=== PATIENT | male | born 1955 | race African-American/Black ===

== ENCOUNTER 2016-05-18 11:56 | Inpatient (IN) | payer OTHER ==
[2016-05-18 12:53] VITALS: BMI 29.8
--- NOTE | 2016-05-18 14:01 | HP ---
Admission ROS [facility] Chief Complaint: I NEED HELP TO STOP USING HEROIN,COCAINE,CANNABIS Allergies/Adverse Reactions: Allergies Allergy/AdvReac Type Severity Reaction Status Date / Time No Known Allergies Allergy Verified 05/18/16 13:53 History of Present Illness: THIS 60 YEARS OLD MALE WITH HEROIN ,COCAINE AND CANNABIS DEPENDENCE,NEED HELP TO STOP TYPE 2 DM NICOTINE DEPENDENCE LAST DETOX 03/12/11 TO 03/17/11 LONGEST SOBRIETY 5 YEARS Exam Limitations: No Limitations - Ebola screening Have you traveled outside of the country in the last 21 days: No Have you had contact with anyone from an Ebola affected area: No Have you been sick,other than usual withdrawal symptoms: No Do you have a fever: No - Review of Systems Constitutional: No Symptoms Reported EENT: reports: No Symptoms Reported Respiratory: reports: No Symptoms reported Cardiac: reports: No Symptoms Reported GI: reports: No Symptoms Reported : reports: No Symptoms Reported Musculoskeletal: reports: No Symptoms Reported Integumentary: reports: No Symptoms Reported Neuro: reports: No Symptoms reported Endocrine: reports: No Symptoms Reported Hematology: reports: No Symptoms Reported Psychiatric: reports: No Sypmtoms Reported Patient History - Patient Medical History Hx Anemia: No Hx Asthma: No Hx Chronic Obstructive Pulmonary Disease (COPD): No Hx Cancer: No Hx Cardiac Disorders: No Hx Congestive Heart Failure: No Hx Hypertension: No Hx Hypercholesterolemia: No Hx Pacemaker: No HX Cerebrovascular Accident: No Hx Seizures: No Hx Dementia: No Hx Diabetes: Yes (NON COMPLIABCE) Hx Gastrointestinal Disorders: No Hx Liver Disease: No Hx Genitourinary Disorders: No Hx Sexually Transmitted Disorders: No Hx Renal Disease (ESRD): No Hx Thyroid Disease: No Hx Human Immunodeficiency Virus (HIV): No (LAST 2012 NEGATIVE) Hx Hepatitis C: No Hx Depression: No Hx Suicide Attempt: No Hx Bipolar Disorder: No Hx Schizophrenia: No Other Medical History: NO SUIICDAL,NO HOMICIDAL - Patient Surgical History Past Surgical History: No - PPD History Previous Implant?: Yes Documented Results: Positive w/o proof Implanted On Prior [facility] Admission?: No PPD to be Administered?: No - Smoking Cessation Smoking history: Current every day smoker Have you smoked in the past 12 months: Yes Aproximately how many cigarettes per day: 4 Hx Chewing Tobacco Use: No Initiated information on smoking cessation: Yes 'Breaking Loose' booklet given: 05/18/16 - Substance & Tx. History Hx Alcohol Use: No Hx Substance Use: Yes Substance Use Type: Cocaine, Heroin, Marijuana Hx Substance Use Treatment: Yes (LAST [facility] 03/12/11 TO 03/17/14) - Substances Abused Heroin Route: Inhalation Frequency: 3-6 times per week Amount used: 1/2 bag Age of first use: 11 Date of Last Use: 05/16/16 Cocaine Route: Smoking Frequency: 3-6 times per week Amount used: $10 Age of first use: 20 Date of Last Use: 05/16/16 Marijuana/Hashish Route: Smoking Frequency: 3-6 times per week Amount used: 3-5 joints Age of first use: 13 Date of Last Use: 05/16/16 Family Disease History - Family Disease History Family Disease History: Other: Father (ALCOHOL ), Mother () Admission Physical Exam [facility] - Vital Signs Vital Signs: Vital Signs - 24 hr 05/18/16 12:51 Temperature 97.4 F L Pulse Rate 66 Respiratory 20 Rate Blood Pressure 121/77 - Physical General Appearance: Yes: Within Normal Limits HEENTM: Yes: Within Normal Limits Respiratory: Yes: Within Normal Limits Neck: Yes: Within Normal Limits Breast: Yes: Within Normal Limits Cardiology: Yes: Within Normal Limits Abdominal: Yes: Within Normal Limits Genitourinary: Yes: Within Normal Limits Back: Yes: Within Normal Limits Musculoskeletal: Yes: Within Normal Limits Extremities: Yes: Within Normal Limits Neurological: Yes: centrifugal machine tender II-XII NML intact, Fully Oriented, Alert, Motor Strength 5/5 Integumentary: Yes: Within Normal Limits Lymphatic: Yes: Within Normal Limits - Diagnostic (1) Heroin dependence Current Visit: Yes Status: Acute (2) Cocaine dependence Current Visit: Yes Status: Acute (3) Cannabis dependence Current Visit: Yes Status: Acute (4) DM2 (diabetes mellitus, type 2) Current Visit: Yes Status: Acute (5) Positive PPD, treated Current Visit: Yes Status: Acute Cleared for Admission [facility] - Detox or Rehab [facility] Level of Care: Medically Managed Claeared for Rehab Admission: Yes [facility] Breath Alcohol Content Breath Alcohol Content: 0 Urine Drug Screen - Results Drug Screen Negative: No Urine Drug Screen Results: THC-Marijuana, FAZAL-Cocaine
[2016-05-18] MEDS ORDERED: hydrOXYzine PAMOATE 50 MG CAPSULE (FP) PO PRN (14:13)
[2016-05-18] MEDS ORDERED: MAGNESIUM HYDROX 2400MG/30ML ORAL SUSPENSION 30 ML CUP PO PRN (14:13)
[2016-05-18] MEDS ORDERED: MAGNESIUM CITRATE 300 ML BOTTLE PO PRN (14:13)
[2016-05-18] MEDS ORDERED: ACETAMINOPHEN 325 MG TABLET (FP) PO PRN (14:13)
[2016-05-18] MEDS ORDERED: MENTHOL/PHENOL 1 EACH UD MM PRN (14:13)
[2016-05-18] MEDS ORDERED: guaiFENesin/D-METHORPHAN HB 10 ML UNIT-DOSE CUPS PO PRN (14:13)
[2016-05-18] MEDS ORDERED: IBUPROFEN 400 MG TABLET (FP) PO PRN (14:13)
[2016-05-18] MEDS ORDERED: LOPERAMIDE HCL 2 MG CAPSULE PO PRN (14:13)
[2016-05-18] MEDS ORDERED: MAG HYDROX/AL HYDROX/SIMETH 30 ML UNIT-DOSE CUP PO PRN (14:13)
[2016-05-18] MEDS ORDERED: P-EPHED 60MG/TRIPROLIDI 2.5MG TABLET PO PRN (14:13)
[2016-05-18] MEDS ORDERED: INSULIN (NOVOLOG) ASPART 100 UNITS/ML 10ML VIAL ONE ×2 (17:08→22:25)
[2016-05-18] MEDS: metFORMIN HCL 500 MG TABLET (FP) PO SCH (17:09)
[2016-05-18] MEDS: INSULIN SLIDING SCALE (NOVOLOG) 1 VIAL SQ SCH ×2 (17:09→21:55)
[2016-05-18 19:22] LABS: MCH 28.4 pg (25.7-33.7); MCHC 31.4 g/dl (32.0-35.9); MEAN CELL VOLUME 90.5 fl (80-96); WHITE BLOOD COUNT 7.7 K/mm3 (4.0-10.0)
[2016-05-18 19:23] LABS: PH,URINE 5.5 (5.0-8.0); URINE APPEARANCE CLEAR; URINE BILIRUBIN NEGATIVE (NEGATIVE); URINE BLOOD NEGATIVE (NEGATIVE); URINE COLOR LT. YELLOW; URINE GLUCOSE (UA) 3+ (NEGATIVE); URINE KETONE NEGATIVE (NEGATIVE); URINE LEUK ESTERASE NEGATIVE (NEGATIVE); URINE NITRITE NEGATIVE (NEGATIVE); URINE PROTEIN NEGATIVE (NEGATIVE); URINE UROBILINOGEN 0.2 E.U/dl E.U./dl (0.2-1.0)
[2016-05-18 19:34] LABS: ALBUMIN 3.9 g/dl (3.4-5.0); ANION GAP 8 (8-16); BILIRUBIN,TOTAL 0.6 mg/dL (0.2-1.0); CALCIUM 9.2 mg/dL (8.5-10.1); CO2 29 mmol/L (21-32); CREATININE 0.9 mg/dL (0.7-1.3); SGOT/AST 27 U/L (15-37); SGPT/ALT 35 U/L (12-78); TOT PROT 7.8 g/dl (6.4-8.2)
[2016-05-18 19:35] LABS: ALK PHOS 147 U/L (45-117)
[2016-05-18 19:52] LABS: GLUCOSE,RANDOM 425 mg/dL (74-106)
[2016-05-18 21:43] LABS: MEAN PLT VOLUME 12.1 fl (7.5-11.1); PLATELET COMMENT2 NO CLUMPING NOTED; PLATELET COUNT 227 K/MM3 (134-434); PLATELET ESTIMATE ADEQUATE (NORMAL)
[2016-05-18] MEDS: THIAMINE HCL 100 MG TABLET (FP) PO SCH (21:56)
[2016-05-18] MEDS: diphenhydrAMINE HCL 50 MG CAPSULE PO PRN (21:56)
[2016-05-19] MEDS: metFORMIN HCL 500 MG TABLET (FP) PO SCH ×2 (06:16→16:39)
[2016-05-19] MEDS: INSULIN SLIDING SCALE (NOVOLOG) 1 VIAL SQ SCH ×4 (06:20→22:02)
[2016-05-19] MEDS ORDERED: INSULIN (NOVOLOG) ASPART 100 UNITS/ML 10ML VIAL ONE ×4 (06:20→22:02)
[2016-05-19] MEDS: PRENATAL VITAMINS W/ FOLIC ACID TABLET (FP) PO SCH (10:09)
--- NOTE | 2016-05-19 10:21 | EKG ---
Test Reason : Blood Pressure : / mmHG Vent. Rate : 063 BPM Atrial Rate : 063 BPM P-R Int : 170 ms QRS Dur : 092 ms QT Int : 418 ms P-R-T Axes : 079 068 070 degrees QTc Int : 427 ms NORMAL SINUS RHYTHM NONSPECIFIC ST AND T WAVE ABNORMALITY ABNORMAL ECG NO PREVIOUS ECGS AVAILABLE Confirmed by JOANNE VIGIL, JUVENAL ([id number]) on 05/19/2016 10:20:44 AM Referred By: Jose Lara Confirmed By:JUVENAL RUBIO MD
[2016-05-19 10:24] LABS: HIV 1 & 2 AB NEGATIVE; HIV 1 AGp24 NEGATIVE
--- NOTE | 2016-05-19 11:54 | HP ---
Psychiatrist Admission - Data Date of interview: 05/19/16 Admission source: [facility] Identifying data: This is the first 5N inpatient rehabilitation admission for this 60 year old single black male residing alone and supported by SSI/SSD. Medical History: DM, smokes cigarettes Psychiatric History: Patient denies history of psychiatric treatment. Physical/Sexual Abuse/Trauma History: Patient denies history of sexual, physical and verbal abuse. Vital Signs: Vital Signs - 24 hr 05/18/16 05/19/16 05/19/16 12:51 00:30 03:30 Temperature 97.4 F L Pulse Rate 66 Respiratory 20 18 18 Rate Blood Pressure 121/77 05/19/16 05/19/16 06:50 10:00 Temperature 97.9 F Pulse Rate 70 69 Respiratory 20 Rate Blood Pressure 112/70 137/77 Allergies/Adverse Reactions: Allergies Allergy/AdvReac Type Severity Reaction Status Date / Time No Known Allergies Allergy Verified 05/18/16 13:53 Date of last physical exam: 05/18/16 Concur with the findings of this exam: Yes - Substance Abuse/Tx History Hx Alcohol Use: No Substance Use Type: Cocaine ($100-200 daily use), Heroin (2-3 bags a week), Marijuana (daily use) Hx Substance Use Treatment: No (first tx) - Admission Criteria Previous failed treatment: No Poor recovery environment: Yes Comorbidities: No Lacks judgement: Yes Mental Status Exam - Mental Status Exam Alert and Oriented to: Time, Place, Person Cognitive Function: Good Patient Appearance: Well Groomed Mood: Hopeful Affect: Appropriate, Mood Congruent Patient Behavior: Appropriate, Cooperative Speech Pattern: Clear, Appropriate Voice Loudness: Normal Thought Process: Intact, Goal Oriented Thought Disorder: Not Present Hallucinations: Denies Suicidal Ideation: Denies Homicidal Ideation: Denies Insight/Judgement: Fair Sleep: Fair Appetite: Fair Muscle strength/Tone: Normal Gait/Station: Normal Psychiatric Findings - Problem List ([place] 1, 2,3) (1) Cannabis dependence Current Visit: Yes Status: Acute (2) Cocaine dependence Current Visit: Yes Status: Acute (3) DM2 (diabetes mellitus, type 2) Current Visit: Yes Status: Acute (4) Heroin dependence Current Visit: Yes Status: Acute - Initial Treatment Plan Initial Treatment Plan: will monitor progress as needed.
[2016-05-19] MEDS: diphenhydrAMINE HCL 50 MG CAPSULE PO PRN (22:03)
[2016-05-19] MEDS: THIAMINE HCL 100 MG TABLET (FP) PO SCH (22:03)
[2016-05-20] MEDS: metFORMIN HCL 500 MG TABLET (FP) PO SCH ×2 (06:27→16:40)
[2016-05-20] MEDS: INSULIN SLIDING SCALE (NOVOLOG) 1 VIAL SQ SCH ×4 (06:27→21:23)
[2016-05-20] MEDS: PRENATAL VITAMINS W/ FOLIC ACID TABLET (FP) PO SCH (10:04)
[2016-05-20] MEDS ORDERED: INSULIN (NOVOLOG) ASPART 100 UNITS/ML 10ML VIAL ONE ×3 (12:15→21:58)
[2016-05-20] MEDS: THIAMINE HCL 100 MG TABLET (FP) PO SCH (21:23)
[2016-05-20] MEDS: diphenhydrAMINE HCL 50 MG CAPSULE PO PRN (21:23)
[2016-05-21] MEDS: metFORMIN HCL 500 MG TABLET (FP) PO SCH ×2 (06:30→16:39)
[2016-05-21] MEDS: INSULIN SLIDING SCALE (NOVOLOG) 1 VIAL SQ SCH ×4 (06:32→21:20)
[2016-05-21] MEDS ORDERED: INSULIN (NOVOLOG) ASPART 100 UNITS/ML 10ML VIAL ONE ×3 (06:34→16:41)
[2016-05-21] MEDS: PRENATAL VITAMINS W/ FOLIC ACID TABLET (FP) PO SCH (09:44)
[2016-05-21] MEDS: THIAMINE HCL 100 MG TABLET (FP) PO SCH (21:17)
[2016-05-21] MEDS: diphenhydrAMINE HCL 50 MG CAPSULE PO PRN (21:21)
[2016-05-22] MEDS: metFORMIN HCL 500 MG TABLET (FP) PO SCH ×2 (06:43→16:40)
[2016-05-22] MEDS: INSULIN SLIDING SCALE (NOVOLOG) 1 VIAL SQ SCH ×4 (06:45→21:42)
[2016-05-22] MEDS ORDERED: INSULIN (NOVOLOG) ASPART 100 UNITS/ML 10ML VIAL ONE ×2 (06:45→12:01)
[2016-05-22] MEDS: PRENATAL VITAMINS W/ FOLIC ACID TABLET (FP) PO SCH (09:41)
[2016-05-22] MEDS: THIAMINE HCL 100 MG TABLET (FP) PO SCH (21:40)
[2016-05-22] MEDS: diphenhydrAMINE HCL 50 MG CAPSULE PO PRN (21:44)
[2016-05-23] MEDS ORDERED: INSULIN (NOVOLOG) ASPART 100 UNITS/ML 10ML VIAL ONE ×2 (06:19→12:07)
[2016-05-23] MEDS: metFORMIN HCL 500 MG TABLET (FP) PO SCH ×2 (06:20→16:38)
[2016-05-23] MEDS: INSULIN SLIDING SCALE (NOVOLOG) 1 VIAL SQ SCH ×4 (06:20→21:36)
[2016-05-23] MEDS: PRENATAL VITAMINS W/ FOLIC ACID TABLET (FP) PO SCH (09:58)
[2016-05-23] MEDS: THIAMINE HCL 100 MG TABLET (FP) PO SCH (21:35)
[2016-05-23] MEDS: diphenhydrAMINE HCL 50 MG CAPSULE PO PRN (21:36)
[2016-05-24] MEDS: INSULIN SLIDING SCALE (NOVOLOG) 1 VIAL SQ SCH ×4 (06:21→21:22)
[2016-05-24] MEDS ORDERED: INSULIN (NOVOLOG) ASPART 100 UNITS/ML 10ML VIAL ONE ×4 (06:21→21:22)
[2016-05-24] MEDS: metFORMIN HCL 500 MG TABLET (FP) PO SCH ×2 (06:22→17:01)
[2016-05-24] MEDS: PRENATAL VITAMINS W/ FOLIC ACID TABLET (FP) PO SCH (09:46)
[2016-05-24] MEDS: THIAMINE HCL 100 MG TABLET (FP) PO SCH (21:23)
[2016-05-25] MEDS ORDERED: INSULIN (NOVOLOG) ASPART 100 UNITS/ML 10ML VIAL ONE ×2 (06:16→12:08)
[2016-05-25] MEDS: INSULIN SLIDING SCALE (NOVOLOG) 1 VIAL SQ SCH ×4 (06:17→21:22)
[2016-05-25] MEDS: metFORMIN HCL 500 MG TABLET (FP) PO SCH ×2 (06:17→16:45)
[2016-05-25] MEDS: PRENATAL VITAMINS W/ FOLIC ACID TABLET (FP) PO SCH (10:16)
[2016-05-25] MEDS: THIAMINE HCL 100 MG TABLET (FP) PO SCH (21:20)
[2016-05-26] MEDS: metFORMIN HCL 500 MG TABLET (FP) PO SCH ×2 (06:35→16:44)
[2016-05-26] MEDS ORDERED: INSULIN (NOVOLOG) ASPART 100 UNITS/ML 10ML VIAL ONE ×4 (06:37→21:41)
[2016-05-26] MEDS: INSULIN SLIDING SCALE (NOVOLOG) 1 VIAL SQ SCH ×4 (06:37→21:41)
[2016-05-26] MEDS: PRENATAL VITAMINS W/ FOLIC ACID TABLET (FP) PO SCH (10:00)
[2016-05-26] MEDS: THIAMINE HCL 100 MG TABLET (FP) PO SCH (21:40)
[2016-05-27] MEDS: metFORMIN HCL 500 MG TABLET (FP) PO SCH ×2 (06:12→16:46)
[2016-05-27] MEDS ORDERED: INSULIN (NOVOLOG) ASPART 100 UNITS/ML 10ML VIAL ONE ×2 (06:15→12:00)
[2016-05-27] MEDS: INSULIN SLIDING SCALE (NOVOLOG) 1 VIAL SQ SCH ×4 (06:16→21:23)
[2016-05-27] MEDS: PRENATAL VITAMINS W/ FOLIC ACID TABLET (FP) PO SCH (10:11)
[2016-05-27] MEDS: THIAMINE HCL 100 MG TABLET (FP) PO SCH (21:22)
[2016-05-27] MEDS: diphenhydrAMINE HCL 50 MG CAPSULE PO PRN (21:25)
[2016-05-28] MEDS ORDERED: INSULIN (NOVOLOG) ASPART 100 UNITS/ML 10ML VIAL ONE ×4 (06:08→21:49)
[2016-05-28] MEDS: INSULIN SLIDING SCALE (NOVOLOG) 1 VIAL SQ SCH ×4 (06:09→21:49)
[2016-05-28] MEDS: metFORMIN HCL 500 MG TABLET (FP) PO SCH ×2 (07:28→17:03)
[2016-05-28] MEDS: PRENATAL VITAMINS W/ FOLIC ACID TABLET (FP) PO SCH (10:05)
--- NOTE | 2016-05-28 14:32 | PN ---
Psychiatric Progress Note Vital Signs: Vital Signs Period Temp Pulse Resp BP Sys/Villalpando Pulse Ox Last 24 Hr 97.8 F 74 18-20 113/75 Date of Session: 05/28/16 Chief Complaint:: "[email or web address]" HPI: Patient is addressing opioid, cocaine, cannabis,nicotine dependence. ROS: DM medically manged. Current Medications: Active Medications Generic Name Dose Route Start Last Admin Trade Name Freq PRN Reason Stop Dose Admin Acetaminophen 650 mg 05/18/16 14:13 Tylenol - PO Q4H PRN PAIN Al Hydroxide/Mg Hydroxide 30 ml 05/18/16 14:13 Mylanta Oral Suspension - PO Q6H PRN DYSPEPSIA Diphenhydramine HCl 50 mg 05/18/16 14:13 05/27/16 21:25 Benadryl - PO 50 mg HSMR1 PRN Administration INSOMNIA Eucalyptus/Menthol/Phenol/Sorbitol 1 each 05/18/16 14:13 Cepastat Lozenge - MM Q4H PRN SORE THROAT Guaifenesin 10 ml 05/18/16 14:13 Robitussin Dm - PO Q6H PRN COUGH Hydroxyzine Pamoate 50 mg 05/18/16 14:13 Vistaril - PO Q4H PRN AGITATION Ibuprofen 400 mg 05/18/16 14:13 Motrin - PO Q6H PRN SEVERE PAIN Insulin Aspart 0 vial 05/18/16 16:30 05/28/16 12:03 Novolog Vial Sliding Scale - SQ 12 units ACHS YAMILET Administration Protocol Loperamide HCl 4 mg 05/18/16 14:13 Imodium - PO Q6H PRN DIARRHEA Magnesium Citrate 300 ml 05/18/16 14:13 Citroma - PO Q48H PRN CONSTIPATION Magnesium Hydroxide 30 ml 05/18/16 14:13 Milk Of Magnesia - PO DAILY PRN CONSTIPATION Metformin HCl 1,000 mg 05/18/16 16:30 05/28/16 07:28 Glucophage - PO 1,000 mg BID@0700,1630 YAMILET Administration Multivit/Folic Acid/Iron 1 tab 05/19/16 10:00 05/28/16 10:05 Vitamins ([facility]) - PO 1 tab DAILY YAMILET Administration Pseudoephedrine/Triprolidine 1 combo 05/18/16 14:13 Actifed - PO TID PRN NASAL CONGESTION Thiamine HCl 100 mg 05/18/16 22:00 05/27/16 21:22 Vitamin B1 - PO 100 mg HS YAMILET Administration Medication(s) Change(s): increase Benadryl 100 mg po hs Current Side Effect: No Lab tests ordered: No Lab tests reviewed: Yes Provider note:: Patient reports has been frustrated by his glucose blood level, reports has been eating a "lot" patient was encouraged to follow the diet, he was referred to see a public address servicer, feeling "ok" just difficulty at nights, psychoeducations refgarding sleeping hygiene, states Benadryl 50 mg po hs not effective and he needs 100 mg po hs, will increase and continue to monitor progress. Total face to face time:: 30 Mental Status Exam - Mental Status Exam Alert and Oriented to: Time, Place, Person Cognitive Function: Good Patient Appearance: Well Groomed Mood: Sad Affect: Appropriate, Mood Congruent Patient Behavior: Appropriate, Cooperative Speech Pattern: Clear, Appropriate Voice Loudness: Normal Thought Process: Goal Oriented Thought Disorder: Not Present Hallucinations: Denies Suicidal Ideation: Denies Homicidal Ideation: Denies Insight/Judgement: Fair Sleep: Poorly, Difficulty falling asleep Appetite: Fair Muscle strength/Tone: Normal Psychiatric Treatment Plan - Problem List (1) Cannabis dependence Current Visit: Yes (2) Cocaine dependence Current Visit: Yes (3) DM2 (diabetes mellitus, type 2) Current Visit: Yes (4) Heroin dependence Current Visit: Yes (5) Insomnia Current Visit: Yes
[2016-05-28] MEDS: THIAMINE HCL 100 MG TABLET (FP) PO SCH (21:50)
[2016-05-28] MEDS: diphenhydrAMINE HCL 50 MG CAPSULE PO PRN (21:52)
[2016-05-29] MEDS: metFORMIN HCL 500 MG TABLET (FP) PO SCH ×2 (06:24→16:46)
[2016-05-29] MEDS: INSULIN SLIDING SCALE (NOVOLOG) 1 VIAL SQ SCH ×4 (06:25→21:14)
[2016-05-29] MEDS ORDERED: INSULIN (NOVOLOG) ASPART 100 UNITS/ML 10ML VIAL ONE ×4 (06:25→21:14)
[2016-05-29] MEDS: PRENATAL VITAMINS W/ FOLIC ACID TABLET (FP) PO SCH (09:42)
[2016-05-29] MEDS: THIAMINE HCL 100 MG TABLET (FP) PO SCH (21:14)
[2016-05-30] MEDS: metFORMIN HCL 500 MG TABLET (FP) PO SCH ×2 (06:21→16:44)
[2016-05-30] MEDS ORDERED: INSULIN (NOVOLOG) ASPART 100 UNITS/ML 10ML VIAL ONE ×4 (08:25→21:53)
[2016-05-30] MEDS: INSULIN SLIDING SCALE (NOVOLOG) 1 VIAL SQ SCH ×4 (08:25→21:53)
[2016-05-30] MEDS: PRENATAL VITAMINS W/ FOLIC ACID TABLET (FP) PO SCH (09:50)
[2016-05-30] MEDS: THIAMINE HCL 100 MG TABLET (FP) PO SCH (21:52)
[2016-05-31] MEDS ORDERED: INSULIN (NOVOLOG) ASPART 100 UNITS/ML 10ML VIAL ONE ×4 (06:18→21:46)
[2016-05-31] MEDS: metFORMIN HCL 500 MG TABLET (FP) PO SCH ×2 (06:19→17:02)
[2016-05-31] MEDS: INSULIN SLIDING SCALE (NOVOLOG) 1 VIAL SQ SCH ×4 (06:19→21:44)
[2016-05-31] MEDS: PRENATAL VITAMINS W/ FOLIC ACID TABLET (FP) PO SCH (10:18)
[2016-05-31] MEDS: THIAMINE HCL 100 MG TABLET (FP) PO SCH (21:41)
[2016-06-01] MEDS ORDERED: INSULIN (NOVOLOG) ASPART 100 UNITS/ML 10ML VIAL ONE ×4 (06:16→21:59)
[2016-06-01] MEDS: metFORMIN HCL 500 MG TABLET (FP) PO SCH ×2 (06:16→17:05)
[2016-06-01] MEDS: INSULIN SLIDING SCALE (NOVOLOG) 1 VIAL SQ SCH ×4 (06:20→21:59)
[2016-06-01] MEDS: PRENATAL VITAMINS W/ FOLIC ACID TABLET (FP) PO SCH (10:13)
[2016-06-01] MEDS: THIAMINE HCL 100 MG TABLET (FP) PO SCH (22:00)
[2016-06-02] MEDS: metFORMIN HCL 500 MG TABLET (FP) PO SCH ×2 (06:45→17:05)
[2016-06-02] MEDS: INSULIN SLIDING SCALE (NOVOLOG) 1 VIAL SQ SCH ×4 (06:45→21:51)
[2016-06-02] MEDS: PRENATAL VITAMINS W/ FOLIC ACID TABLET (FP) PO SCH (10:08)
[2016-06-02] MEDS ORDERED: INSULIN (NOVOLOG) ASPART 100 UNITS/ML 10ML VIAL ONE ×3 (11:55→21:51)
[2016-06-02] MEDS: THIAMINE HCL 100 MG TABLET (FP) PO SCH (21:50)
[2016-06-02] MEDS: diphenhydrAMINE HCL 50 MG CAPSULE PO PRN (21:52)
[2016-06-03] MEDS ORDERED: INSULIN (NOVOLOG) ASPART 100 UNITS/ML 10ML VIAL ONE (06:22)
[2016-06-03] MEDS: INSULIN SLIDING SCALE (NOVOLOG) 1 VIAL SQ SCH (06:22)
[2016-06-03] MEDS: metFORMIN HCL 500 MG TABLET (FP) PO SCH (06:23)
[2016-06-03 06:59] VITALS: BP 121/66; PULSE 77; TEMP 98.2
[2016-06-03] MEDS: PRENATAL VITAMINS W/ FOLIC ACID TABLET (FP) PO SCH (09:48)
--- NOTE | 2016-06-03 10:40 | PN ---
Psychiatric Progress Note Vital Signs: Vital Signs Period Temp Pulse Resp BP Sys/Villalpando Pulse Ox Last 24 Hr 98.2 F 70-77 16-20 121/66 Date of Session: 06/03/16 Chief Complaint:: disharge visit HPI: Patient has addressed opioid, cocaine, cannabis,nicotine dependence. ROS: DM medically managed. Current Medications: Active Medications Generic Name Dose Route Start Last Admin Trade Name Freq PRN Reason Stop Dose Admin Acetaminophen 650 mg 05/18/16 14:13 Tylenol - PO Q4H PRN PAIN Al Hydroxide/Mg Hydroxide 30 ml 05/18/16 14:13 Mylanta Oral Suspension - PO Q6H PRN DYSPEPSIA Diphenhydramine HCl 100 mg 05/28/16 22:00 06/02/16 21:52 Benadryl - PO 100 mg HS PRN Administration INSOMNIA Eucalyptus/Menthol/Phenol/Sorbitol 1 each 05/18/16 14:13 Cepastat Lozenge - MM Q4H PRN SORE THROAT Guaifenesin 10 ml 05/18/16 14:13 06/03/16 10:01 Robitussin Dm - PO 10 ml Q6H PRN Administration COUGH Hydroxyzine Pamoate 50 mg 05/18/16 14:13 Vistaril - PO Q4H PRN AGITATION Ibuprofen 400 mg 05/18/16 14:13 Motrin - PO Q6H PRN SEVERE PAIN Insulin Aspart 0 vial 05/18/16 16:30 06/03/16 06:22 Novolog Vial Sliding Scale - SQ 2 units ACHS YAMILET Administration Protocol Loperamide HCl 4 mg 05/18/16 14:13 Imodium - PO Q6H PRN DIARRHEA Magnesium Citrate 300 ml 05/18/16 14:13 Citroma - PO Q48H PRN CONSTIPATION Magnesium Hydroxide 30 ml 05/18/16 14:13 Milk Of Magnesia - PO DAILY PRN CONSTIPATION Metformin HCl 1,000 mg 05/18/16 16:30 06/03/16 06:23 Glucophage - PO 1,000 mg BID@0700,1630 YAMILET Administration Multivit/Folic Acid/Iron 1 tab 05/19/16 10:00 06/03/16 09:48 Vitamins ([facility]) - PO 1 tab DAILY YAMILET Administration Pseudoephedrine/Triprolidine 1 combo 05/18/16 14:13 Actifed - PO TID PRN NASAL CONGESTION Thiamine HCl 100 mg 05/18/16 22:00 06/02/16 21:50 Vitamin B1 - PO 100 mg HS YAMILET Administration Current Side Effect: No Lab tests ordered: No Lab tests reviewed: Yes Provider note:: Patient has completed today this inpatient rehabilitation treatment and met his goals, will continue to address his issues at [facility]-outpatient treatment program. Patient verbalized his resolution to stay sober and be adherent to every steps his outpatient treatment plans. Patient understands the negative impact drugs on his major life areas and reports that he is willing to use all coing skills he learned during his treatment here. Patient was encouraged to continue maintain abstinence and to follow up with his medical appointments, patient is stable for discharge today. Total face to face time:: 35 Mental Status Exam - Mental Status Exam Alert and Oriented to: Time, Place, Person Cognitive Function: Grossly Intact Patient Appearance: Well Groomed Mood: Hopeful Patient Behavior: Appropriate, Cooperative Speech Pattern: Clear, Appropriate Voice Loudness: Normal Thought Process: Intact, Goal Oriented Thought Disorder: Not Present Hallucinations: Denies Suicidal Ideation: Denies Homicidal Ideation: Denies Insight/Judgement: Fair Sleep: Fair Appetite: Fair Muscle strength/Tone: Normal Gait/Station: Normal Psychiatric Treatment Plan - Problem List (1) Cannabis dependence Current Visit: Yes (2) Cocaine dependence Current Visit: Yes (3) DM2 (diabetes mellitus, type 2) Current Visit: Yes (4) Heroin dependence Current Visit: Yes (5) Insomnia Current Visit: Yes
== END 2016-06-03 11:30 | disposition home or self-care (01) | DRG 772 ==
LOC: YASAS 11:56 → Y5N 14:16
PROVIDERS: ADMIT Psychiatry & Neurology Psychiatry; ATTEND Psychiatry & Neurology Psychiatry
PROC: HZ42ZZZ Group Counseling for Substance Abuse Treatment, Cognitive-Behavioral (ICD-10-PCS; principal; 2016-05-18)
DX: F11.20 Opioid dependence, uncomplicated (principal); F14.20 Cocaine dependence, uncomplicated; F12.20 Cannabis dependence, uncomplicated; F17.210 Nicotine dependence, cigarettes, uncomplicated; E11.9 Type 2 diabetes mellitus without complications; G47.00 Insomnia, unspecified; R76.11 Nonspecific reaction to tuberculin skin test without active tuberculosis; Z91.14 Patient's other noncompliance with medication regimen
CPT/HCPCS: 36415; 71020-TC; 80053; 81003; 85027; 86593; 87389; 93005; 93010